=== PATIENT | female | born 1960 | race Caucasian/White ===

== ENCOUNTER 2017-03-08 05:39 | Inpatient (IN) | payer OTHER ==
[~2017-03-08] VITALS: Ht 161.3 cm; Wt 90.5 kg
[~2017-03-08 05:39] MED LIST: GLUCOPHAGE500 MG PO; HYDROCHLOROTHIA25 MG PO; LEVOTHROID50 MCG PO; MOTRIN600 MG PO; NAPROSYN500 MG PO; NEXIUM40 MG PO; NYAMYC60 GM TP; NYSTATIN15 GM TP; PAIN RELIEF325 M1 PO; PERCOCET 7.51 TABLET PO; PROAIR HFA8.5 GM IH; TUMS ULTRA1000 MG PO; TYLENOL EXTRA500 MG PO; TYLENOL WITH C1 EACH PO; VITAMIN D32000 UNI1 PO
[2017-03-08 06:18] LABS: POINT-OF-CARE METER ID UU14174212
[2017-03-08] MEDS ORDERED: XANAX0.25 MG PO (06:18)
[2017-03-08 06:20] VITALS: BP 155/88
[2017-03-08 09:49] LABS: POINT-OF-CARE METER ID UU13113675
[2017-03-08 12:06] VITALS: BP 160/79
[2017-03-08 13:50] VITALS: BP 144/75
[2017-03-08 15:37] VITALS: BP 130/58
[2017-03-08 16:44] LABS: POINT-OF-CARE METER ID UU13113712
[2017-03-08 20:04] VITALS: BP 135/68
[2017-03-09 00:30] VITALS: BP 132/60
[2017-03-09 03:54] VITALS: BP 140/63
[2017-03-09 05:37] LABS: HEMATOCRIT 34.2 % (36.0-46.0); MCV 85.7 FL (83-99)
[2017-03-09 07:55] LABS: POINT-OF-CARE METER ID UU13113712
[2017-03-09 08:00] VITALS: BP 144/65
[2017-03-09 11:28] LABS: POINT-OF-CARE METER ID UU13113712
[2017-03-09 11:40] VITALS: BP 139/74
[2017-03-09 16:02] VITALS: BP 140/64
[2017-03-09 16:38] LABS: POINT-OF-CARE METER ID UU13113712
[2017-03-09 20:27] VITALS: BP 137/63
[2017-03-10 00:10] VITALS: BP 126/61
[2017-03-10 04:00] VITALS: BP 143/65
[2017-03-10 05:35] LABS: HEMATOCRIT 33.7 % (36.0-46.0); MCV 84.5 FL (83-99)
[2017-03-10 08:05] VITALS: BP 134/61
[2017-03-10 08:05] LABS: POINT-OF-CARE METER ID UU13113712
[2017-03-10] MEDS ORDERED: BENADRYL25 MG PO (08:36)
[2017-03-10] MEDS ORDERED: BISACODYL5 MG PO (08:40)
[2017-03-10] MEDS ORDERED: OXYCODONE HCL5 MG PO (08:41)
[2017-03-10] MEDS ORDERED: CELECOXIB200 MG PO (08:41)
[2017-03-10] MEDS ORDERED: XARELTO10 MG PO (08:41)
[2017-03-10 11:05] VITALS: BP 130/64
[2017-03-10 11:48] LABS: POINT-OF-CARE METER ID UU13113712
[2017-03-10 15:15] VITALS: BP 120/66
== END 2017-03-10 16:00 | DRG 470 ==
LOC: 2SOUTH 05:39 → 3WEST 12:05 → 2SOUTH 13:33 → 3WEST 03-10 16:00
PROVIDERS: Orthopaedic Surgery
PROC: 0SRC0J9 Replacement of Right Knee Joint with Synthetic Substitute, Cemented, Open Approach (ICD-10-PCS; principal; 2017-03-08)
PROC: 3E0T3BZ Introduction of Anesthetic Agent into Peripheral Nerves and Plexi, Percutaneous Approach (ICD-10-PCS; principal; 2017-03-08)
DX: M17.11 Unilateral primary osteoarthritis, right knee (principal); I10 Essential (primary) hypertension; F41.9 Anxiety disorder, unspecified; F32.9 Major depressive disorder, single episode, unspecified; K21.9 Gastro-esophageal reflux disease without esophagitis; E06.3 Autoimmune thyroiditis
CPT/HCPCS: 82948; 85014; 85018; C1713; J0131; J0690; J1200; J1815; J1885; J2250; J2405; J2795; J3010; J7050; L1820